=== PATIENT | female | born 1965 | race African-American/Black ===

== ENCOUNTER 2021-05-16 05:43 | Emergency (ER) | payer MEDICAID, OTHER ==
[~2021-05-16] VITALS: Ht 157.5 cm; Wt 66.7 kg
[2021-05-16] MEDS ORDERED: diphenhdrAMINE HCL 25 MG CAP PO ONE (06:15)
[2021-05-16 07:53] VITALS: BP 152/91
[2021-05-16] MEDS ORDERED: TRIA0.1O TOP (08:13)
[2021-05-16] MEDS ORDERED: HYDR25CA PO (08:13)
[2021-05-16] MEDS ORDERED: EPINEPHrine HCL 1 MG/1 ML AMP SC ONE (08:15)
== END 2021-05-16 08:49 | disposition home or self-care (01) ==
LOC: ER 05:43
DX: T78.40XA Allergy, unspecified, initial encounter (principal); I10 Essential (primary) hypertension; X58.XXXA Exposure to other specified factors, initial encounter
CPT/HCPCS: 96372; 99283; J0171